=== PATIENT | male | born 1990 | race Caucasian/White ===

== ENCOUNTER 2019-04-25 19:23 | Emergency (ER) | payer OTHER ==
--- NOTE | 2019-04-25 19:35 | PDOC ---
Rapid Medical Evaluation Time Seen by Provider: 04/25/19 19:34 Medical Evaluation: 04/25/19 19:34 HPI: diarrhea x4 days PE: No gross deficits ORDERS: CBC CMP Discharge Disposition - Diagnosis Diarrhea - Referrals - Patient Instructions - Post Discharge Activity
[2019-04-25 19:49] VITALS: TEMP 97.9; BMI 36.9
[2019-04-25] MEDS ORDERED: SODIUM CHLORIDE 1,000 ML IV STA (22:02)
--- NOTE | 2019-04-25 22:02 | PDOC ---
History of Present Illness - General Chief Complaint: Diarrhea Stated Complaint: ABD PAIN & DIARRHEA Time Seen by Provider: 04/25/19 19:34 History Source: Patient - History of Present Illness Initial Comments: 04/25/19 22:07 29 year old male with diarrhea x 4 days 4-5 episodes yesterday today with 2 episodes. patient reports that for the last 2 years he has been having bouts of diarrhea. had a work up at [facility] . patient reports that he hasnt seen a warp hanger. Past History - Past Medical History Allergies/Adverse Reactions: Allergies Allergy/AdvReac Type Severity Reaction Status Date / Time No Known Allergies Allergy Verified 04/25/19 19:39 Asthma: No Cancer: No Cardiac Disorders: No COPD: No CHF: No - Suicide/Smoking/Psychosocial Hx Smoking History: Never smoked Information on smoking cessation initiated: No Hx Alcohol Use: Yes Drug/Substance Use Hx: No Review of Systems - Review of Systems Able to Perform ROS?: Yes Is the patient limited Tajik proficient: No Constitutional: No: Symptoms Reported, See HPI, Chills, Diaphoresis, Fever, Loss of Appetite, Malaise, Night Sweats, Weakness, Weight Stable, Unintentional Wgt. Loss, Unexplained wgt Loss, Other ABD/GI: Yes: Diarrhea. No: Nausea, Vomiting, Abdominal cramping *Physical Exam - Vital Signs Last Vital Signs Temp Pulse Resp BP Pulse Ox 97.9 F 79 20 136/74 98 04/25/19 19:33 04/25/19 19:33 04/25/19 19:33 04/25/19 19:33 04/25/19 19:33 - Physical Exam General Appearance: Yes: Appropriately Dressed ED Treatment Course - LABORATORY CBC & Chemistry Diagram: 04/25/19 22:35 04/25/19 22:35 Progress Note - Progress Note Progress Note: A: diarrhea P : cbc cmp IVF lipase outpaient GI follow up *DC/Admit/Observation/Transfer Diagnosis at time of Disposition: Diarrhea Qualifiers: Diarrhea type: unspecified type Qualified Code(s): R19.7 - Diarrhea, unspecified - Discharge Dispostion Disposition: HOME - Referrals Referrals: Davi Durán MD [Staff Physician] - - Patient Instructions Printed Discharge Instructions: Diarrhea Additional Instructions: drink plenty of fluids start a BRAT ( bananas, rice apples toast) follow up with your doctor or a warp hanger as soon as possible. a referral was given to you return to the ER if symptoms worsen - Post Discharge Activity Forms/Work/School Notes: Back to Work
[2019-04-25 22:43] LABS: EOS % 1.6 % (0-4.5); HEMATOCRIT 49.3 % (35.4-49); HEMOGLOBIN 16.6 GM/dL (11.7-16.9); LYMPH % 27.2 % (8-40); MCH 28.1 pg (25.7-33.7); MCHC 33.6 g/dl (32.0-35.9); MEAN CELL VOLUME 83.6 fl (80-96); MEAN PLT VOLUME 7.5 fl (7.5-11.1); MONO % 12.2 % (3.8-10.2); PLATELET COUNT 186 K/MM3 (134-434); RDW 13.9 % (11.9-15.9); WHITE BLOOD COUNT 7.9 K/mm3 (4.0-10.0)
[2019-04-25 23:11] LABS: ALBUMIN 4.1 g/dl (3.4-5.0); BILIRUBIN,TOTAL 0.4 mg/dL (0.2-1); BLOOD UREA NITROGEN 18.6 mg/dL (7-18); CREATININE 1.2 mg/dL (0.55-1.3); POTASSIUM 3.7 mmol/L (3.5-5.1); TOT PROT 7.5 g/dl (6.4-8.2)
[2019-04-26 01:49] VITALS: BP 135/78; PULSE 76
== END 2019-04-26 00:25 | disposition home or self-care (01) ==
LOC: JER 19:23
PROC: 3E0337Z Introduction of Electrolytic and Water Balance Substance into Peripheral Vein, Percutaneous Approach (ICD-10-PCS; principal; 2019-04-25)
DX: R19.7 Diarrhea, unspecified (principal)
CPT/HCPCS: 36415; 80053; 83690; 85025; 96365; 99283-25; J7030

== ENCOUNTER 2019-09-21 08:09 | Day surgery (SDC) | payer OTHER ==
[2019-09-20 12:18] VITALS: BMI 37.8
[2019-09-21 11:04] VITALS: TEMP 98.2
[2019-09-21 13:53] VITALS: BP 121/78; PULSE 63
--- NOTE | 2019-09-22 17:56 | PATH ---
Surgical Pathology Report Patient Name: ALLAN SHELLEY [facility]. Rec. #: [id number] /Age/Gender: 1990 (Age: 29) / M Account: [id number] Location: [facility]-ENDOSCOPY Taken: 09/21/2019 Received: 09/21/2019 Reported: 09/22/2019 Physicians: Yury Edgar D.O. Specimen(s) Received A: RIGHT COLON B: TRANSVERSE COLON C: DESCENDING COLON D: SIGMOID COLON E: RECTUM 15CM Clinical History Diarrhea Postoperative diagnosis: Rule out microscopic colitis Final Diagnosis A. RIGHT COLON, BIOPSY: COLONIC MUCOSA WITH REACTIVE LYMPHOID AGGREGATE. NO EVIDENCE OF INTRAEPITHELIAL LYMPHOCYTOSIS. B. TRANSVERSE COLON, BIOPSY: COLONIC MUCOSA WITH REACTIVE LYMPHOID AGGREGATE. NO EVIDENCE OF INTRAEPITHELIAL LYMPHOCYTOSIS. C. DESCENDING COLON, BIOPSY: COLONIC MUCOSA WITH REACTIVE LYMPHOID AGGREGATE. NO EVIDENCE OF INTRAEPITHELIAL LYMPHOCYTOSIS. D. SIGMOID COLON, BIOPSY: COLONIC MUCOSA WITH REACTIVE LYMPHOID AGGREGATE. NO EVIDENCE OF INTRAEPITHELIAL LYMPHOCYTOSIS. E. RECTUM 15CM, BIOPSY: COLONIC MUCOSA WITH REACTIVE LYMPHOID AGGREGATE. NO EVIDENCE OF INTRAEPITHELIAL LYMPHOCYTOSIS. Electronically Signed Jasmin Parker M.D. Gross Description A. Received in formalin, labeled "biopsy right colon" are 4 [place], irregular portions of soft tissue ranging from 0.2-0.3 cm. in greatest dimension. The specimens are submitted in toto in one cassette. B. Received in formalin, labeled "biopsy transverse colon" are 3 [place], irregular portions of soft tissue ranging from 0.1-0.3 cm. in greatest dimension. The specimens are submitted in toto in one cassette. C. Received in formalin, labeled "biopsy descending colon" are 2 [place], irregular portions of soft tissue measuring 0.3 and 0.4 cm. in greatest dimension. The specimens are submitted in toto in one cassette. D. Received in formalin, labeled "biopsy sigmoid" are 3 [place], irregular portions of soft tissue ranging from 0.2-0.5 cm. in greatest dimension. The specimens are submitted in toto in one cassette. E. Received in formalin, labeled "biopsy rectum 15 cm" are 3 [place], irregular portions of soft tissue ranging from 0.2-0.3 cm. in greatest dimension. The specimens are submitted in toto in one cassette. DL/09/21/2019 saudi/09/21/2019
== END 2019-09-21 12:20 | disposition home or self-care (01) ==
LOC: JASU-ENDO 08:09
PROVIDERS: ATTEND Internal Medicine Gastroenterology
PROC: 0DBE8ZX Excision of Large Intestine, Via Natural or Artificial Opening Endoscopic, Diagnostic (ICD-10-PCS; principal; 2019-09-21 09:00)
DX: R19.7 Diarrhea, unspecified (principal); K64.8 Other hemorrhoids
CPT/HCPCS: 88305-TC